=== PATIENT | female | born 1995 | race Caucasian/White ===

== ENCOUNTER 2018-04-12 13:47 | Emergency (ER) | payer MEDICAID, OTHER ==
[~2018-04-12] VITALS: Ht 160 cm; Wt 46.8 kg
[~2018-04-12 13:47] MED LIST: ZOF4T PO
[2018-04-12 14:09] VITALS: BP 95/64
[2018-04-12] MEDS ORDERED: benoxinate/fluorescein ophth drops 5ml bottle RIGHTEYE ONE (14:30)
[2018-04-12] MEDS ORDERED: acetaminophen 325mg tablet PO ONE (15:00)
[2018-04-12] MEDS ORDERED: CYCL15DR OP (15:19)
[2018-04-12] MEDS ORDERED: PRED5DRO23 OP (15:19)
[2018-04-12] MEDS ORDERED: moxifloxacin 0.5% ophthalmic drops 3ml RIGHTEYE SCH (20:00)
== END 2018-04-12 15:52 | disposition home or self-care (01) ==
LOC: ER 13:48
DX: S05.01XA Injury of conjunctiva and corneal abrasion without foreign body, right eye, initial encounter (principal); H21.01 Hyphema, right eye; F15.90 Other stimulant use, unspecified, uncomplicated; W22.8XXA Striking against or struck by other objects, initial encounter; Y93.55 Activity, bike riding; Y92.413 State road as the place of occurrence of the external cause; Y99.9 Unspecified external cause status
CPT/HCPCS: 99283

== ENCOUNTER 2019-10-14 20:43 | Emergency (ER) | payer MEDICAID, OTHER ==
[~2019-10-14] VITALS: Ht 160 cm; Wt 43.0 kg
[~2019-10-14 20:43] MED LIST changes: +CYCL15DR OP; +PRED5DRO23 OP
--- NOTE | 2019-10-14 21:48 | NUR ---
ASSISTED DR WALKER AND DR ROMO WITH EXTERNAL GENITAL EXAMINE,
[2019-10-14] MEDS ORDERED: penicillin G benzathine 1.2 million unit/2ml syringe IM ONE (21:50)
[2019-10-14] MEDS ORDERED: ACYC-202 PO (21:56)
[2019-10-14] MEDS ORDERED: ACET-3067 PO (21:56)
[2019-10-14 22:59] VITALS: BP 113/79
[2019-10-16 11:10] LABS: RPR Reactive (Non Reactive)
== END 2019-10-14 23:01 | disposition home or self-care (01) ==
LOC: ER 20:44
DX: N89.8 Other specified noninflammatory disorders of vagina (principal); F17.200 Nicotine dependence, unspecified, uncomplicated; F11.10 Opioid abuse, uncomplicated; F15.10 Other stimulant abuse, uncomplicated; Z79.899 Other long term (current) drug therapy
CPT/HCPCS: 36415; 86592; 86695; 86696; 96372; 99283; J0561